=== PATIENT | male | born 1960 | race Caucasian/White ===

== ENCOUNTER 2022-06-29 06:33 | Emergency (ER) | payer BC ==
--- NOTE | 2022-06-29 08:03 | RAD REPORT ---
EXAM DESCRIPTION: CT - Head Brain Wo Cont - 06/29/2022 7:56 am CLINICAL HISTORY: Dizziness COMPARISON: None TECHNIQUE: Computed axial tomography of the head was obtained. IV contrast was not requested. All CT scans are performed using dose optimization technique as appropriate and may include automated exposure control or mA/KV adjustment according to patient size. FINDINGS: An intracranial bleed is not seen . The ventricles are normal in caliber. No extra-axial fluid collection is noted. No significant hypodensity within the brain Fluid within the sinuses/ mastoids is not seen. Mucus retention cyst right maxillary sinus IMPRESSION: No acute intracranial abnormality is seen. If patient's symptoms persist MRI of the bra in would be recommended.
[2022-06-29 08:23] LABS: Urine Blood Negative (Negative); Urine Glucose Negative (Negative); Urine Protein Negative (Negative); Urine Specific Gravity 1.025 (1.005-1.030)
[2022-06-29 08:50] LABS: Absolute Lymphocytes (CBC) 1.1 K/uL (0.7-4.9); Hematocrit 46.3 % (39.6-49.0); Lymphocytes % 21.1 % (15.3-44.8); MCV 92.9 fL (80-100); MPV 8.9 fL (7.6-11.3); RBC Red Blood Cell Count 4.98 M/uL (4.33-5.43)
[2022-06-29 09:10] LABS: Albumin 3.6 g/dL (3.4-5.0); Bilirubin Total 0.3 mg/dL (0.2-1.0); Magnesium 1.8 mg/dL (1.8-2.4); Potassium 3.8 mmol/L (3.5-5.1); Protein, Total 6.9 g/dL (6.4-8.2); Troponin High Sensitivity 6.5 pg/mL (<58.9)
[2022-06-29 09:34] LABS: Urine Bacteria 20-50 /HPF (<20); Urine RBC None Seen /HPF (None Seen)
--- NOTE | 2022-06-29 10:03 | ER ---
Nurse's Notes [facility] Name: Julian iVdes Age: 62 yrs Sex: Male : 1960 Arrival Date: 06/29/2022 Time: 06:37 Bed 26 Private MD: Diagnosis: Dizziness and giddiness;Elevated blood-pressure reading, without diagnosis of hypertension Presentation: 06/29 06:42 Chief complaint: Patient states: "I have cotton mouth, I feel dizzy and I feel like my tw5 bp is high.". Coronavirus screen: Vaccine status: Patient reports receiving the 2nd dose of the covid vaccine. Moderna. Ebola Screen: Patient negative for fever greater than or equal to 101.5 degrees Fahrenheit, and additional compatible Ebola Virus Disease symptoms Patient denies exposure to infectious person. Patient denies travel to an Ebola-affected area in the 21 days before illness onset. Initial Sepsis Screen: Does the patient meet any 2 criteria? No. Patient's initial sepsis screen is negative. Does the patient have a suspected source of infection? No. Patient's initial sepsis screen is negative. Risk Assessment: Do you want to hurt yourself or someone else? Patient reports no desire to harm self or others. Onset of symptoms was June 29, 2022 at 04:30. 06:42 Method Of Arrival: Ambulatory tw5 06:42 Acuity: MANUELITO 3 tw5 Triage Assessment: 06:44 General: Appears obese, Behavior is calm, cooperative, appropriate for age. Pain: tw5 Denies pain. Neuro: Reports dizziness. Historical: - Allergies: 06:44 No Known Allergies; tw5 - Home Meds: 06:44 None [Active]; tw5 - PMHx: 06:44 Hypertension; tw5 - Immunization history:: Flu vaccine is not up to date. - Social history:: Smoking status: Patient denies any tobacco usage or history of. Screenin:00 Abuse screen: Denies threats or abuse. Denies injuries from another. Nutritional gatica screening: No deficits noted. Tuberculosis screening: No symptoms or risk factors identified. Fall Risk None identified. Assessment: 09:00 General: Appears in no apparent distress. Behavior is calm, cooperative. Pain: Denies gatica pain. Neuro: Reports dizziness. Cardiovascular: Reports lightheadedness. Vital Signs: 06:42 BP 154 / 106; Pulse 88; Resp 18; Temp 98.2; Pulse Ox 93% on R/A; Weight 133.81 kg; tw5 Height 6 ft. 2 in. (187.96 cm); Pain 0/10; 07:27 BP 166 / 113; Pulse 84; Resp 17; Pulse Ox 93% on R/A; gatica 07:28 BP 166 / 113; Pulse 89; Resp 18; Pulse Ox 92% on R/A; mb7 09:04 BP 136 / 82; Pulse 90; Resp 18; Pulse Ox 95% on R/A; gatica 06:42 Body Mass Index 37.88 (133.81 kg, 187.96 cm) tw5 ED Course: 06:37 Patient arrived in ED. ja2 06:44 Triage completed. tw5 06:44 Arm band placed on right wrist. tw5 07:04 Anabel Calderon, JONATAN is Primary Nurse. gatica 07:04 Ninoska Beltrán MD is Attending Physician. sd2 07:28 Bed in low position. Call light in reach. Side rails up X 1. Door closed. Noise mb7 minimized. Warm blanket given. Client placed on continuous cardiac and pulse oximetry monitoring. NIBP monitoring applied. monitor car operator on. 07:28 EKG done, by ED staff, reviewed by Ninoska Beltrán MD. mb7 07:50 Inserted saline lock: 20 gauge in right antecubital area, using aseptic technique. mb7 Blood collected. 07:57 CT Head Brain wo Cont In Process Unspecified. EDMS 09:00 No provider procedures requiring assistance completed. gatica 10:13 IV discontinued, intact, Pressure dressing applied. gatica Administered Medications: No medications were administered Medication: 09:00 VIS not applicable for this client. gatica Outcome: 10:03 Discharge ordered by . sd2 10:13 Discharged to home ambulatory. gatica 10:13 Condition: good 10:13 Discharge instructions given to patient. 10:13 Patient left the ED. gatica Signatures: Dispatcher [employer] EDMS Vivi Hernández2 Lazaro Griselda tw5 Oriana Fox mb7 Anabel Calderon RN RN ha Dunlop, Stephanie, MD MD sd2
--- NOTE | 2022-06-29 10:03 | EDPHYS ---
Physician Documentation [facility] Name: Julian Vides Age: 62 yrs Sex: Male : 1960 Arrival Date: 06/29/2022 Time: 06:37 Bed 26 Private MD: ED Physician Ninoska Beltrán HPI: 06/29 07:53 This 62 yrs old Male presents to ER via Ambulatory with complaints of High Blood sd2 Pressure, Dizziness. 07:53 62 yo M presents with CC of dizziness upon awakening this morning when he went to walk sd2 to the restroom. Reports was a lightheaded sensation and "feeling off" but denies any room spinning sensation, CP, SOB, VOGT or blurred vision. He denies any fever, vomiting, diarrhea or recent illness. Reports his BP is running high. Previously diagnosed with HTN and lost weight and was able to get off of meds 2-3 years ago but has regained some of his weight and is concerned his HTN might be the issue.. Historical: - Allergies: 06:44 No Known Allergies; tw5 - Home Meds: 06:44 None [Active]; tw5 - PMHx: 06:44 Hypertension; tw5 - Immunization history:: Flu vaccine is not up to date. - Social history:: Smoking status: Patient denies any tobacco usage or history of. ROS: 07:53 Constitutional: Negative for fever, chills, and weight loss, Eyes: Negative for injury, sd2 pain, redness, and discharge, Cardiovascular: Negative for chest pain, palpitations, and edema, Respiratory: Negative for shortness of breath, cough, wheezing. Abdomen/GI: Negative for abdominal pain, nausea, vomiting, diarrhea. MS/Extremity: Negative for injury and deformity, Skin: Negative for injury, rash, and discoloration, Neuro: Negative for headache, numbness and tingling. Positive for dizziness. Exam: 07:53 Constitutional: This is a well developed, well nourished patient who is awake, alert, sd2 and in no acute distress. Head/Face: Normocephalic, atraumatic. Eyes: EOMI, normal conjunctiva bilaterally Chest/axilla: Normal chest wall appearance and motion. Nontender with no deformity. Cardiovascular: Regular rate and rhythm with a normal S1 and S2. No gallops, murmurs, or rubs. 2+ distal pulses. Respiratory: Lungs have equal breath sounds bilaterally, clear to auscultation and percussion. No rales, rhonchi or wheezes noted. No increased work of breathing, no retractions or nasal flaring. Abdomen/GI: Soft, non-tender, with normal bowel sounds. No guarding or rebound. No evidence of tenderness throughout. Skin: Warm, dry with normal turgor. Normal color with no rashes, no lesions, and no evidence of cellulitis. MS/ Extremity: Pulses equal, no cyanosis. Neurovascular intact. Full, normal range of motion. Ambulatory without difficulty. Neuro: Awake and alert, GCS 15, oriented to person, place, time, and situation. Cranial nerves II-XII grossly intact. Motor strength 5/5 in all extremities. Sensory grossly intact. Cerebellar exam normal. Normal gait. Psych: Awake, alert, with orientation to person, place and time. Behavior, mood, and affect are within normal limits. 08:15 ECG was reviewed by the Attending Physician. NSR, rate 84, no STEMI criteria sd2 Vital Signs: 06:42 BP 154 / 106; Pulse 88; Resp 18; Temp 98.2; Pulse Ox 93% on R/A; Weight 133.81 kg; tw5 Height 6 ft. 2 in. (187.96 cm); Pain 0/10; 07:27 BP 166 / 113; Pulse 84; Resp 17; Pulse Ox 93% on R/A; vogt 07:28 BP 166 / 113; Pulse 89; Resp 18; Pulse Ox 92% on R/A; mb7 09:04 BP 136 / 82; Pulse 90; Resp 18; Pulse Ox 95% on R/A; vogt 06:42 Body Mass Index 37.88 (133.81 kg, 187.96 cm) tw5 MDM: 07:37 Patient medically screened. sd2 07:55 Differential diagnosis: hypertensive crisis, intracerebral hemorrhage, dehydration, sd2 electrolyte abnormality among others. Data reviewed: vital signs, nurses notes. 10:00 Counseling: I had a detailed discussion with the patient and/or guardian regarding: the sd2 historical points, exam findings, and any diagnostic results supporting the discharge/admit diagnosis, the presence of at least one elevated blood pressure reading (>120/80) during this emergency department visit, lab results, radiology results, the need for outpatient follow up, to return to the emergency department if symptoms worsen or persist or if there are any questions or concerns that arise at home. Medical screen evaluation completed. EMTALA emergency medical condition absent. ED course: Labs and imaging reviewed. Labs grossly WNCL. CT head neg. No focal neuro deficits. Pt ambulatory without difficulty. BP improved without treatment in ED and has remained stable. Pt did have episodes of hypoxia and apnea while sleeping in ED which improved upon awakening and pt was informed of need for sleep study evaluation and to follow up closely with his PCP regarding this as it can lead to his elevated BP as well. He is comfortable with plan for discharge and outpatient follow up and verbalizes understanding of discharge plan and strict return precautions.. 06/29 07:38 Order name: CBC with Diff; Complete Time: 09:37 sd2 06/29 07:38 Order name: CMP; Complete Time: 09:37 sd2 06/29 07:38 Order name: Magnesium; Complete Time: 09:37 sd2 06/29 07:38 Order name: Troponin High Sensitivity; Complete Time: 09:37 sd2 06/29 07:38 Order name: Urine Microscopic Only; Complete Time: 09:37 sd2 06/29 08:23 Order name: Urine Dipstick-Ancillary; Complete Time: 09:37 EDMS 06/29 07:38 Order name: EKG - Nurse/Tech; Complete Time: 07:44 sd2 06/29 07:38 Order name: Urine Dipstick-Ancillary (obtain specimen); Complete Time: 08:24 sd2 06/29 07:38 Order name: CT Head Brain wo Cont; Complete Time: 08:13 sd2 06/29 07:44 Order name: IV Saline Lock; Complete Time: 08:24 mb7 06/29 09:37 Order name: Urine Culture EDMS Administered Medications: No medications were administered Disposition Summary: 06/29/22 10:03 Discharge Ordered Location: Home sd2 Problem: new sd2 Symptoms: have improved sd2 Condition: Stable sd2 Diagnosis - Dizziness and giddiness sd2 - Elevated blood-pressure reading, without diagnosis of hypertension sd2 Followup: sd2 - With: Private Physician - When: 2 - 3 days - Reason: Recheck today's complaints, Continuance of care, Re-evaluation by your physician Followup: sd2 - With: Emergency Department - When: As needed - Reason: Discharge Instructions: - Discharge Summary Sheet sd2 - Dizziness sd2 - Hypertension, Adult sd2 - Sleep Apnea sd2 - Sleep Studies sd2 Forms: - Medication Reconciliation Form sd2 - Thank You Letter sd2 - Antibiotic Education sd2 - Prescription Opioid Use sd2 Signatures: Dispatcher [employer] Griselda Middleton tw5 Oriana Fox 7 Ninoska Beltrán MD MD sd2
[2022-06-29 10:59] VITALS: TEMP 98.2
[2022-06-29 11:22] VITALS: BP 136/82; O2SAT 95
--- NOTE | 2022-07-01 12:26 | EKG ---
Test Date: 2022-06-29 Test Time: 07:27:56 Senior Occupational Therapist: MB MEASUREMENT RESULTS: Intervals: Rate: 84 OH: 170 QRSD: 100 QT: 282 QTc: 333 Holmes: P: 65 OH: 170 QRS: 47 T: 12 INTERPRETIVE STATEMENTS: Normal sinus rhythm Nonspecific ST and T wave abnormality Abnormal ECG Compared to ECG 05/24/2009 08:23:54 ST (T wave) deviation now present Electronically Signed On 07-01-22 12:23:53 CDT by Dinh Inman
== END 2022-06-29 10:13 | disposition home or self-care (01) ==
LOC: ER 06:33
DX: R42 Dizziness and giddiness (principal); I10 Essential (primary) hypertension
CPT/HCPCS: 36415; 70450; 80053; 81003; 81015; 83735; 84484; 85025; 87086; 87088; 93005; 99284